=== PATIENT | female | born 1995 | race Two or more races ===

== ENCOUNTER 2019-09-14 23:03 | Inpatient (IN) | payer BC, MEDICAID ==
[~2019-09-14] VITALS: Ht 152.4 cm; Wt 88.9 kg
--- NOTE | 2019-09-14 23:20 | NUR ---
Poison control contacted, recommends drawing CBC, CMP, ASA and Tylenol levels, and obtain 12 lead EKG. Monitor for at least 6 hours from time of ingestion. Be alert for COPYHOLDER depression, ALOC and seizures. Monitor for widening QRS. For QRS > 120 give 1-2 mEq/kg of NaBicarb.
[2019-09-14 23:44] LABS: BASOPHILS # (AUTO) 0.1 X10'3 (0-0.2); BASOPHILS % (AUTO) 0.6 % (0-1); EOSINOPHILS # (AUTO) 0.2 X10'3 (0-0.9); EOSINOPHILS % (AUTO) 1.2 % (0-6); HEMATOCRIT 46.3 % (35.0-45.0); HEMOGLOBIN 15.8 g/dl (12.0-16.0); LYMPHOCYTES # (AUTO) 4.3 X10'3 (1.1-4.8); LYMPHOCYTES % (AUTO) 30.7 % (21-51); MEAN CORPUSCULAR HEMOGLOBIN 28.3 PG (27.0-31.0); MEAN CORPUSCULAR VOLUME 83.2 FL (78-98); MEAN PLATELET VOLUME 8.6 FL (7.4-10.4); MONOCYTES # (AUTO) 0.6 X10'3 (0-0.9); MONOCYTES % (AUTO) 4.4 % (2-12); NEUTROPHILS # (AUTO) 8.9 X10'3 (1.8-7.7); NEUTROPHILS % (AUTO) 63.1 % (42-75); PLATELET COUNT 308 X10'3 (140-440); RED BLOOD COUNT 5.56 X10'6 (4.20-5.60); RED CELL DISTRIBUTION WIDTH 13.8 % (11.5-14.5); WHITE BLOOD COUNT 14.1 X10'3 (4.5-11.0)
[2019-09-15 00:07] LABS: ALANINE AMINOTRANSFERASE 41 U/L (12-78); ALBUMIN 4.2 G/DL (3.4-5.0); ALBUMIN/GLOBULIN RATIO 0.9 (1.1-1.5); ALKALINE PHOSPHATASE 99 IU/L (46-116); ANION GAP 10 (8-16); ASPARTATE AMINO TRANSFERASE 15 U/L (10-37); BILIRUBIN,TOTAL 0.2 MG/DL (0.1-1.0); BLOOD UREA NITROGEN 12 MG/DL (7-18); BUN/CREATININE RATIO 12.9 (6.6-38.0); CALCIUM 9.5 MG/DL (8.5-10.1); CHLORIDE 103 MMOL/L (99-107); CREATININE 0.93 MG/DL (0.40-0.90); GLUCOSE 84 MG/DL (70-104); POTASSIUM 3.6 MMOL/L (3.5-5.1); SODIUM 139 MMOL/L (135-145); TOTAL CARBON DIOXIDE 26.2 MMOL/L (24-32); TOTAL PROTEIN 8.9 G/DL (6.4-8.2); eGFR 75 ML/MIN
[2019-09-15 00:15] LABS: ETHANOL < 0.010 GM/DL (0.0-0.010)
[2019-09-15 00:16] LABS: ACETAMINOPHEN < 2.0 UG/ML (10-30)
--- NOTE | 2019-09-15 00:31 | NUR ---
SRAVANTHI YOUSSEF BOYFRIEND CALLED FOR STATUS OF PT. PT DOES NOT WANT US TO UPDATE HIM
--- NOTE | 2019-09-15 00:32 | NUR ---
PT GIVES PERMISSION TO SPEAK WITH HER MOTHER IF SHE CALLS
[2019-09-15] MEDS ORDERED: normal saline 1000ML IV soln IV ONE (00:45)
--- NOTE | 2019-09-15 00:48 | NUR ---
DR. CASILLAS INFORMED THAT THE HR IS 136. HE ASKED IF THE FIRST LITER OF NS IS IN. I INFORMED THAT IT WAS, HE SAID HE WILL ORDER ANOTHER. I ASKED HIM TO ORDER THE FIRST LITER WELL PLEASE. I ASKED THE PATIENT HOW SHE FELT. HER ANSWER WAS "ONE" I DO NOT KNOW WHAT THAT MEANS. THE PT. JUST STARES AT ME.
[2019-09-15] MEDS ORDERED: normal saline 1000ML IV soln IVB ONE (01:25)
--- NOTE | 2019-09-15 01:40 | NUR ---
PT RIED TO URINATE WAS UNABLE. WILL DO A STRAIT CATH
--- NOTE | 2019-09-15 02:00 | NUR ---
DID NOT DO ROOM AND ENVIRONMET ASSESSMENT AND REMOVAL OF ITEMS. PT IS REQUIRING MEDICAL ATTENTION. WILL REMOVE WHEN PT IS MEDICALLY CLEARED
[2019-09-15 02:01] LABS: URINE HCG NEGATIVE (NEG)
[2019-09-15 02:08] LABS: CLARITY,URINE CLEAR (Clear); COLOR,URINE STRAW (Yellow); GLUCOSE, URINE NEGATIVE (Neg); KETONES,URINE NEGATIVE (Neg); LEUKOCYTE ESTERASE ,URINE NEGATIVE (Neg); NITRITES, URINE NEGATIVE (Neg); OCCULT BLOOD,URINE MODERATE (Neg); PH,URINE 5.5 (4.8-8.0); PROTEIN,URINE NEGATIVE (Neg); URINE AMPHETAMINE SCREEN NEGATIVE (Neg); URINE BARBITUATE SCREEN NEGATIVE (Neg); URINE BENZODIAZEPINES SCREEN NEGATIVE (Neg); URINE CANNABINOID SCREEN NEGATIVE (Neg); URINE COCAINE SCREEN NEGATIVE (Neg); URINE METHADONE SCREEN NEGATIVE (Neg); URINE OPIATE SCREEN NEGATIVE (Neg); URINE PHENCYCLIDINE SCREEN NEGATIVE (Neg); UROBILINOGEN,URINE 0.2 E.U/dL (0.2-1.0)
[2019-09-15 02:09] LABS: UA COLLECTION TYPE INDWELLING CATH
--- NOTE | 2019-09-15 02:13 | NUR ---
Stacie GAVE DEAN (MOM) NUMBER [phone] TO CALL AND ASK HER QUESTIONS
[2019-09-15 02:15] LABS: BACTERIA,URINE NONE SEEN /HPF (Neg); RBC,URINE 0-2 /HPF (0-2); SQUAMOUS EPITHELIAL CELL,UR FEW /LPF (FEW); WBC,URINE NONE SEEN /HPF (0-4)
--- NOTE | 2019-09-15 02:26 | NUR ---
PT SITTING UP IN BED, FOOT OUT OF RAIL. SHE SAID "I AM UPSET, I DON'T KNOW WHEN SAW'S BIRTHDAY IS, AND I DON'T WANT TO TALK ABOUT IT." MD AWARE OF PT CONFUSION AND HEARTRATE AND BP.
--- NOTE | 2019-09-15 05:00 | NUR ---
TRIED TO CALL DEAN MICHEL MOM AGAIN NO ANSWER.
--- NOTE | 2019-09-15 05:18 | NUR ---
PT TO XRAY AND CT
--- NOTE | 2019-09-15 05:19 | NUR ---
WAS AT BS TO SEE THE PATIENT, HE IS AWARE OF THE HR AND BP
[2019-09-15] MEDS ORDERED: NO HOME MEDS (05:46)
[2019-09-15] MEDS ORDERED: CefTRIAXone 2gm/D5W 50ml 50 ML IV ONE (05:55)
[2019-09-15] MEDS ORDERED: vancomycin/NS 1 GM ADD-VANTAGE 250 ML IV ONE (05:55)
--- NOTE | 2019-09-15 05:56 | NUR ---
PT HAS A VERY UNSTEADY GAIT AND BALANCE IS OFF. SUMMONED TO THE BS TO SEE THIS. TEMPERATURE NOW 100.8 HR 135 RR 41 AND BP 151/100
[2019-09-15] MEDS ORDERED: CefTRIAXone inj 2,000 MG in dextrose 5%-water 100 ML IV ONE (05:59)
[2019-09-15] MEDS ORDERED: acetaminophen 325mg tablet PO STA (06:11)
--- NOTE | 2019-09-15 06:22 | NUR ---
REPORT GIVEN TO Mp peters
--- NOTE | 2019-09-15 06:50 | NUR ---
CALLED LAB AND STATED ANOTHER 20 MIN UNTIL RAPID COVID TEST IS BACK
[2019-09-15] MEDS ORDERED: mag hydrox/Alum hydrox/simeth 30ml oral suspension PO PRN (07:50)
[2019-09-15] MEDS ORDERED: magnesium hydroxide 30ml (MOM) UD suspension PO PRN (07:50)
[2019-09-15] MEDS ORDERED: magnesium 4gm in 100ml NS 100 ML IV PRN (07:50)
[2019-09-15] MEDS ORDERED: magnesium 2GM in 50ml NS 50 ML IV PRN (07:50)
[2019-09-15] MEDS ORDERED: acetaminophen 325mg tablet PO PRN (07:50)
[2019-09-15] MEDS ORDERED: ipratropium/albuterol 3ml nebule NEB PRN (07:50)
[2019-09-15] MEDS ORDERED: potassium Cl 20 mEq SR tablet PO PRN ×2 (07:50)
[2019-09-15] MEDS ORDERED: potassium CL 10mEq/100ml bag 100 ML IV PRN ×2 (07:50)
[2019-09-15] MEDS: K and/or MAG REPLACEMENT MC SCH ×2 (08:00→21:30)
[2019-09-15 08:15] LABS: BASOPHILS % (AUTO) 0.3 % (0-1); EOSINOPHILS % (AUTO) 0 % (0-6); HEMATOCRIT 43.5 % (35.0-45.0); HEMOGLOBIN 14.6 g/dl (12.0-16.0); LYMPHOCYTES % (AUTO) 15.5 % (21-51); MEAN CORPUSCULAR HEMOGLOBIN 27.8 PG (27.0-31.0); MEAN CORPUSCULAR HGB CONC 33.5 g/dL (33.0-36.5); MEAN CORPUSCULAR VOLUME 82.9 FL (78-98); MEAN PLATELET VOLUME 8.7 FL (7.4-10.4); MONOCYTES # (AUTO) 0.3 X10'3 (0-0.9); MONOCYTES % (AUTO) 2.3 % (2-12); NEUTROPHILS # (AUTO) 10.8 X10'3 (1.8-7.7); NEUTROPHILS % (AUTO) 81.9 % (42-75); PLATELET COUNT 305 X10'3 (140-440); RED BLOOD COUNT 5.25 X10'6 (4.20-5.60); RED CELL DISTRIBUTION WIDTH 13.8 % (11.5-14.5); WHITE BLOOD COUNT 13.1 X10'3 (4.5-11.0)
[2019-09-15 08:30] VITALS: BP 165/111
[2019-09-15 08:31] LABS: ALANINE AMINOTRANSFERASE 35 U/L (12-78); ALBUMIN/GLOBULIN RATIO 0.9 (1.1-1.5); ALKALINE PHOSPHATASE 95 IU/L (46-116); ANION GAP 10 (8-16); ASPARTATE AMINO TRANSFERASE 15 U/L (10-37); BILIRUBIN,TOTAL 0.2 MG/DL (0.1-1.0); BLOOD UREA NITROGEN 9 MG/DL (7-18); CALCIUM 9.1 MG/DL (8.5-10.1); CHLORIDE 107 MMOL/L (99-107); GLUCOSE 105 MG/DL (70-104); SODIUM 142 MMOL/L (135-145); TOTAL CARBON DIOXIDE 24.9 MMOL/L (24-32); TOTAL PROTEIN 8.3 G/DL (6.4-8.2); eGFR 78 ML/MIN
[2019-09-15] MEDS: diatr meglu/diatrizoate 30ml oral sol.-(3 dose) bottle PO SCH ×3 (09:27→15:44)
[2019-09-15] MEDS ORDERED: fentaNYL/PF 50MCG/1 ML 2ML syringe ONE (09:46)
[2019-09-15] MEDS ORDERED: midazolam 2 mg/2 ml injection ONE ×2 (09:46→09:56)
[2019-09-15 11:08] LABS: GLUCOSE,CSF 70 MG/DL (40-75); TOTAL PROTEIN,CSF 36 MG/DL (15-45)
[2019-09-15 11:20] LABS: APPEARANCE,CSF HAZY; CSF RBC 1575 /CU MM (0); CSF SUPERNATANT COLOR PINK; CSF VOLUME 11 ML; CSF WBC CT 3 /CU MM (0-5); TUBE# COUNTED 1
[2019-09-15 11:21] LABS: APPEARANCE,CSF CLEAR; CSF RBC 30 /CU MM (0); CSF SUPERNATANT COLOR COLORLESS; CSF VOLUME 11 ML; CSF WBC CT 1 /CU MM (0-5); TUBE# COUNTED 4
[2019-09-15 11:50] VITALS: BP 144/97
[2019-09-15] MEDS: sodium bicarbonate (8.4%) inj. 50 MEQ in dextrose 5%-water 1,000 ML IV SCH ×2 (12:15→19:25)
[2019-09-15] MEDS: acyclovir inj 1,000 MG in normal saline 250ml IV soln 230 ML IV SCH ×2 (12:15→19:12)
[2019-09-15] MEDS: metoprolol tartrate 25mg tablet PO SCH ×2 (13:50→21:32)
[2019-09-15 13:52] VITALS: BP 138/78
[2019-09-15] MEDS ORDERED: iohexol 300mg/ml 100ml inj. ONE (15:40)
[2019-09-15] MEDS: VANCOmycin 1250MG/NS 250ml Bag 250 ML IV SCH ×2 (16:40→23:10)
[2019-09-15 18:00] VITALS: BP 137/85
--- NOTE | 2019-09-15 18:45 | NUR ---
Patient in room ORTHO 4012. I have received report from Kailyn TURCIOS and had the opportunity to ask questions and assume patient care.
[2019-09-15 22:00] VITALS: BP 121/62
[2019-09-16] MEDS: acyclovir inj 1,000 MG in normal saline 250ml IV soln 230 ML IV SCH ×2 (01:39→09:23)
[2019-09-16 06:00] VITALS: BP 106/58
--- NOTE | 2019-09-16 06:00 | NUR ---
Patient in room ORTHO 4012. I have received report from Mary TURCIOS and had the opportunity to ask questions and assume patient care.
--- NOTE | 2019-09-16 06:35 | NUR ---
Problems reprioritized. Patient report given, questions answered & plan of care reviewed with Arlene TURCIOS.
[2019-09-16 07:11] LABS: BASOPHILS % (AUTO) 0.1 % (0-1); EOSINOPHILS # (AUTO) 0.1 X10'3 (0-0.9); EOSINOPHILS % (AUTO) 1.1 % (0-6); HEMOGLOBIN 13.5 g/dl (12.0-16.0); LYMPHOCYTES # (AUTO) 3.7 X10'3 (1.1-4.8); LYMPHOCYTES % (AUTO) 28.2 % (21-51); MEAN CORPUSCULAR HEMOGLOBIN 27.7 PG (27.0-31.0); MEAN CORPUSCULAR HGB CONC 32.9 g/dL (33.0-36.5); MEAN CORPUSCULAR VOLUME 84.2 FL (78-98); MEAN PLATELET VOLUME 8.2 FL (7.4-10.4); MONOCYTES # (AUTO) 0.9 X10'3 (0-0.9); MONOCYTES % (AUTO) 6.6 % (2-12); NEUTROPHILS # (AUTO) 8.4 X10'3 (1.8-7.7); PLATELET COUNT 269 X10'3 (140-440); RED BLOOD COUNT 4.86 X10'6 (4.20-5.60); WHITE BLOOD COUNT 13.2 X10'3 (4.5-11.0)
[2019-09-16] MEDS: metoprolol tartrate 25mg tablet PO SCH ×2 (07:21→19:46)
[2019-09-16] MEDS: VANCOmycin 1250MG/NS 250ml Bag 250 ML IV SCH (07:21)
[2019-09-16 07:24] LABS: ALANINE AMINOTRANSFERASE 31 U/L (12-78); ALBUMIN 3.4 G/DL (3.4-5.0); ALBUMIN/GLOBULIN RATIO 1.1 (1.1-1.5); ALKALINE PHOSPHATASE 82 IU/L (46-116); ANION GAP 7 (8-16); ASPARTATE AMINO TRANSFERASE 13 U/L (10-37); BILIRUBIN,TOTAL 0.5 MG/DL (0.1-1.0); BLOOD UREA NITROGEN 10 MG/DL (7-18); BUN/CREATININE RATIO 9.5 (6.6-38.0); CHLORIDE 110 MMOL/L (99-107); CREATININE 1.05 MG/DL (0.40-0.90); GLUCOSE 89 MG/DL (70-104); POTASSIUM 3.9 MMOL/L (3.5-5.1); SODIUM 144 MMOL/L (135-145); TOTAL CARBON DIOXIDE 26.8 MMOL/L (24-32); TOTAL PROTEIN 6.6 G/DL (6.4-8.2); eGFR 65 ML/MIN
[2019-09-16] MEDS ORDERED: CefTRIAXone inj 2,000 MG in normal saline 100ml IV soln 100 ML IV SCH (08:00)
[2019-09-16] MEDS: K and/or MAG REPLACEMENT MC SCH ×2 (08:00→20:00)
[2019-09-16 11:00] VITALS: BP 126/61
--- NOTE | 2019-09-16 13:56 | NUR ---
PAGER ID: [phone] MESSAGE: [id number] Aline Menjivar Poison control says they will clear her case once she is officially medically cleared. Derrick Jacobs [phone]
[2019-09-16] MEDS ORDERED: VANCOMYCIN LEVEL IV ONE (14:30)
[2019-09-16 18:00] VITALS: BP 176/57
--- NOTE | 2019-09-16 18:17 | NUR ---
Problems reprioritized. Patient report given, questions answered & plan of care reviewed with Lorie TURCIOS.
--- NOTE | 2019-09-16 19:14 | NUR ---
Patient in room ORTHO 4012. I have received report from LAURA TURCIOS and had the opportunity to ask questions and assume patient care.
[2019-09-16] MEDS: acetaminophen 325mg tablet PO PRN (20:18)
[2019-09-16] MEDS: ondansetron/PF 4mg/2ml inj IV PRN (20:52)
[2019-09-16 22:00] VITALS: BP 120/77
--- NOTE | 2019-09-16 22:30 | NUR ---
[facility] wrote a 5150 on patient
--- NOTE | 2019-09-16 23:04 | NUR ---
Received report from Lorie TURCIOS
--- NOTE | 2019-09-17 00:05 | NUR ---
Roman from [facility] called about questions on the patient.
[2019-09-17 06:10] LABS: BASOPHILS % (AUTO) 0.2 % (0-1); EOSINOPHILS # (AUTO) 0.1 X10'3 (0-0.9); HEMATOCRIT 40.6 % (35.0-45.0); HEMOGLOBIN 13.4 g/dl (12.0-16.0); LYMPHOCYTES # (AUTO) 3.2 X10'3 (1.1-4.8); LYMPHOCYTES % (AUTO) 25.6 % (21-51); MEAN CORPUSCULAR HEMOGLOBIN 27.5 PG (27.0-31.0); MEAN CORPUSCULAR VOLUME 83.3 FL (78-98); MEAN PLATELET VOLUME 8.2 FL (7.4-10.4); MONOCYTES # (AUTO) 0.6 X10'3 (0-0.9); MONOCYTES % (AUTO) 5.2 % (2-12); NEUTROPHILS # (AUTO) 8.5 X10'3 (1.8-7.7); PLATELET COUNT 267 X10'3 (140-440); RED BLOOD COUNT 4.87 X10'6 (4.20-5.60); RED CELL DISTRIBUTION WIDTH 13.7 % (11.5-14.5); WHITE BLOOD COUNT 12.4 X10'3 (4.5-11.0)
--- NOTE | 2019-09-17 06:36 | NUR ---
Problems reprioritized. Patient report given, questions answered & plan of care reviewed with Karin TURCIOS.
--- NOTE | 2019-09-17 06:44 | NUR ---
Patient in room ORTHO 4012. I have received report from [facility] and had the opportunity to ask questions and assume patient care.
[2019-09-17 06:46] LABS: ALANINE AMINOTRANSFERASE 27 U/L (12-78); ALBUMIN 3.5 G/DL (3.4-5.0); ALBUMIN/GLOBULIN RATIO 0.9 (1.1-1.5); ALKALINE PHOSPHATASE 92 IU/L (46-116); ANION GAP 10 (8-16); ASPARTATE AMINO TRANSFERASE 11 U/L (10-37); BILIRUBIN,TOTAL 0.4 MG/DL (0.1-1.0); BLOOD UREA NITROGEN 8 MG/DL (7-18); CALCIUM 8.5 MG/DL (8.5-10.1); CHLORIDE 107 MMOL/L (99-107); GLUCOSE 87 MG/DL (70-104); MAGNESIUM 2.1 MG/DL (1.5-2.4); POTASSIUM 3.5 MMOL/L (3.5-5.1); SODIUM 143 MMOL/L (135-145); TOTAL CARBON DIOXIDE 26.5 MMOL/L (24-32); TOTAL PROTEIN 7.2 G/DL (6.4-8.2); eGFR 89 ML/MIN
[2019-09-17] MEDS: metoprolol tartrate 25mg tablet PO SCH ×2 (07:42→20:54)
[2019-09-17] MEDS: K and/or MAG REPLACEMENT MC SCH (08:00)
[2019-09-17] MEDS: ondansetron/PF 4mg/2ml inj IV PRN (08:57)
[2019-09-17] MEDS: acetaminophen 325mg tablet PO PRN ×2 (09:01→17:41)
[2019-09-17 18:00] VITALS: BP 112/73
--- NOTE | 2019-09-17 18:31 | NUR ---
Problems reprioritized. Patient report given, questions answered & plan of care reviewed with Elisa.
[2019-09-17 20:00] VITALS: BP 136/81
[2019-09-17 20:54] VITALS: BP_SYST 136
[2019-09-18 17:07] LABS: CSF WEST NILE VIRUS, IGM Negative (Negative)
[2019-09-19 11:16] LABS: CSF WEST NILE VIRUS, IGG Negative (Negative)
== END 2019-09-17 22:30 | DRG 917 ==
LOC: ER 23:04 → ED HOLD 09-15 07:50 → ORTHO 4S 09-15 08:45
PROVIDERS: ADMIT Family Medicine; ATTEND Family Medicine
PROC: 009U3ZZ Drainage of Spinal Canal, Percutaneous Approach (ICD-10-PCS; principal; 2019-09-15)
PROC: B01B1ZZ Fluoroscopy of Spinal Cord using Low Osmolar Contrast (ICD-10-PCS; 2019-09-15)
PROC: BW211ZZ Computerized Tomography (CT Scan) of Abdomen and Pelvis using Low Osmolar Contrast (ICD-10-PCS; 2019-09-15)
DX: T45.0X2A Poisoning by antiallergic and antiemetic drugs, intentional self-harm, initial encounter (principal); G92 Toxic encephalopathy; F32.9 Major depressive disorder, single episode, unspecified; D72.823 Leukemoid reaction; Z20.828 Contact with and (suspected) exposure to other viral communicable diseases; R00.0 Tachycardia, unspecified; Y92.89 Other specified places as the place of occurrence of the external cause
CPT/HCPCS: 36415; 62328; 70450; 71045; 74177; 77003; 80053; 80202; 80305; 80320; 80329; 81001; 81025; 82945; 83605; 83735; 84145; 84157; 84443; 85025; 86592; 86788; 86789; 87015; 87040; 87070; 87081; 87635; 89051; 93005; 93971; 94760; 99152; 99153; 99285; G0378; J0133; J0696; J2250; J2405; J3010; J3370; J7030; J7050; J7060; Q9963; Q9967

== ENCOUNTER 2019-09-17 19:05 | Inpatient (IN) | payer BC, MEDICAID ==
[~2019-09-17] VITALS: Ht 152.4 cm; Wt 86.0 kg
[~2019-09-17 19:05] MED LIST: NO HOME MEDS
[2019-09-17 22:30] VITALS: BP 128/83
--- NOTE | 2019-09-17 22:53 | NUR ---
Arrived on the floor at 22:30 Ambulatory, 2 RN skin done. Pt showered. Belongings inventoried. Pt cooperative with admit process. Oriented to unit. Patient is a 24 y/o female BIB EMS to ED with overdose and attempted suicide. Patient stated to EMS she "wanted to end it all" and per boyfriend, took 10, 25mg Benadryl. Per EMS patient was alert and oriented, responding appropriately to questions. Patient does have confirmed history of depression. Pt was admitted to a medical floor treated, medically cleared and transferred to the unit.
[2019-09-17] MEDS ORDERED: traZODone 50mg tablet PO PRN (23:00)
[2019-09-17] MEDS ORDERED: ondansetron 4mg rapidly disintigrating tab PO ONE (23:00)
[2019-09-17] MEDS ORDERED: acetaminophen 325mg tablet PO PRN ×2 (23:00)
[2019-09-17] MEDS ORDERED: magnesium hydroxide 30ml (MOM) UD suspension PO PRN (23:00)
[2019-09-17] MEDS ORDERED: mag hydrox/Alum hydrox/simeth 30ml oral suspension PO PRN (23:00)
[2019-09-17] MEDS ORDERED: LORazepam 1 MG tablet PO PRN (23:00)
[2019-09-17] MEDS ORDERED: loperamide 2mg capsule PO PRN (23:00)
[2019-09-17] MEDS ORDERED: ibuprofen tablet 400 MG TABLET PO PRN (23:05)
--- NOTE | 2019-09-18 00:18 | NUR ---
Nursing Progress Note: Legal hold:5150 Client on involuntary status for DTS Report received from nurse with use of SBAR . Why are they here: Patient was BIB EMS to ED with overdose and attempted suicide. Patient stated to EMS she "wanted to end it all" and per boyfriend, took 10, 25mg Benadryl. Per EMS patient was alert and oriented, responding appropriately to questions. Patient does have confirmed history of depression. Pt was admitted to a medical floor treated, medically cleared and transferred to the unit. Assessment What has happened this shift: Pt was cooperative with admit process. She said several times that she no longer is suicidal and would like to go home tomorrow but is open to the idea of staying longer. Encouraged to talk to MD about her depression that per pt she was looking into "getting Psycho Therapy for" Immediately after Admit finished pt went to sleep. S/I, H/I: denies A/VH: demoes Sleep:Asleep at this time ADL's: independant Group attendance: NA Were meds taken: PRN ibuprofen only medication taken Any med S/E no Mental Status Exam Appearance: well groomed Eye contact: Good Behavior:Cooperative anxious wants to be discharged in am Speech: clear Mood: anxious Affect: appropriate Thought process: linear Thought Content: home tomorrow Cognition: good Insight: poor Judgment: fair Interventions PRN's used: ibuprofen Therapeutic interventions: Therapeutic interventions: 1:1 assessment, medication education, administration and monitoring for effects, active listening, therapeutic conversation with positive feedback, monitored pts labs, maintained a safe and therapeutic environment, Q15 min safety checks. Justification of Continued Inpatient Treatment: Pt needs interruption of current crisis and medication stabilization to prevent reoccurring hospitalization.
[2019-09-18 07:30] VITALS: BP 125/81
[2019-09-18 07:56] LABS: CHOL/HDL RATIO 4.8 (0.00-4.99); CHOLESTEROL 164 MG/DL (0-200); HDL CHOLESTEROL 34 MG/DL (35-60); LDL CHOLESTEROL 112 MG/DL (50-100); TRIGLYCERIDES 110 MG/DL (20-135)
[2019-09-18 08:32] LABS: HEMOGLOBIN A1C 5.7 % (4.5-6.2)
[2019-09-18] MEDS ORDERED: ibuprofen tablet 400 MG TABLET PO PRN (13:35)
--- NOTE | 2019-09-18 14:25 | NUR ---
Dr. Hudson came to see this patient. Patient states that she has nausea for which Dr. Hudson states he will order some Zofran. She also states that she, "has the worst headache", so Dr. Hudson is also ordering a head CT to rule out a subarachnoid hemorrhage.
[2019-09-18] MEDS ORDERED: ondansetron 4mg rapidly disintigrating tab PO PRN (14:45)
[2019-09-18 15:49] LABS: BASOPHILS # (AUTO) 0.1 X10'3 (0-0.2); BASOPHILS % (AUTO) 0.5 % (0-1); EOSINOPHILS # (AUTO) 0.1 X10'3 (0-0.9); EOSINOPHILS % (AUTO) 0.8 % (0-6); HEMOGLOBIN 13.4 g/dl (12.0-16.0); LYMPHOCYTES # (AUTO) 3.6 X10'3 (1.1-4.8); LYMPHOCYTES % (AUTO) 27.5 % (21-51); MEAN CORPUSCULAR HEMOGLOBIN 27.9 PG (27.0-31.0); MEAN CORPUSCULAR HGB CONC 33.6 g/dL (33.0-36.5); MONOCYTES # (AUTO) 0.7 X10'3 (0-0.9); MONOCYTES % (AUTO) 5.2 % (2-12); NEUTROPHILS # (AUTO) 8.6 X10'3 (1.8-7.7); PLATELET COUNT 280 X10'3 (140-440); RED BLOOD COUNT 4.82 X10'6 (4.20-5.60); RED CELL DISTRIBUTION WIDTH 13.8 % (11.5-14.5)
--- NOTE | 2019-09-18 16:01 | NUR ---
Nursing Progress Note: Legal hold:5150 Client on involuntary status for DTS Report received from nurse with use of SBAR . Why are they here: Patient was BIB EMS to ED with overdose and attempted suicide. Patient stated to EMS she "wanted to end it all" and per boyfriend, took 10, 25mg Benadryl. Per EMS patient was alert and oriented, responding appropriately to questions. Patient does have confirmed history of depression. Pt was admitted to a medical floor treated, medically cleared and transferred to the unit. Assessment What has happened this shift: Pt. asleep at start of shift. Pt. awake for breakfast. At breakfast, greeted pt, pt., became tearful. RN asked pt. if she wanted to talk in private, pt. states, I dont want to talk about it. Pt. ate only part of her breakfast and went back to her room to sleep. 1:1 done at bedside, pt. denies SI/HI, A/V hallucinations. Pt. reports she is here because she took 10 Benadryl because she wanted to number herself. Pt. does not want to talk about details, pt. states, I have a headache. Pt. reports headache rated 10/10 and given Tylenol with no effect. RN received order for Ibuprofen 800mg TID PRN. Pt. given some relief. Pt. refused lunch. Hospitalist ordered CT scan and Zofran for pt. CT was negative S/I, H/I: denies A/VH: denies Sleep: Pt. napped majority of shift. ADL's: independent Group attendance: NA Were meds taken: Yes Any med S/E: None Mental Status Exam Appearance: well groomed Eye contact: Good Behavior: Cooperative but guarded. Isolates to room. Speech: clear Mood: anxious. Depressed. Affect: Congruent with mood Thought process: linear Thought Content: Discharge Cognition: good Insight: poor Judgment: fair Interventions PRN's used: Tylenol 650 mgx1 and Ibuprofen 800mg x1 Therapeutic interventions: Therapeutic interventions: 1:1 assessment, medication education, administration and monitoring for effects, active listening, therapeutic conversation with positive feedback, monitored pts labs, maintained a safe and therapeutic environment, Q15 min safety checks. Justification of Continued Inpatient Treatment: Pt needs interruption of current crisis and medication stabilization to prevent reoccurring hospitalization.
[2019-09-18 20:00] VITALS: BP 123/77
[2019-09-18] MEDS ORDERED: ESCITALOPRAM OXALATE 5 MG TABLET PO ONE (20:20)
--- NOTE | 2019-09-19 02:06 | NUR ---
Nursing Progress Note: Legal hold:5150 Client on involuntary status for DTS Report received from nurse with use of SBAR . Why are they here: Patient was BIB EMS to ED with overdose and attempted suicide. Patient stated to EMS she "wanted to end it all" and per boyfriend, took 10, 25mg Benadryl. Per EMS patient was alert and oriented, responding appropriately to questions. Patient does have confirmed history of depression. Pt was admitted to a medical floor treated, medically cleared and transferred to the unit. Assessment What has happened this shift: Pt in room awake at change of shift. Pt said headache and nausea have completely resolved. Isolated to room all shift. 1:1 done at bedside, Pt said she is not depressed denied SI. Pt is focused on discharge. Per pt MD said she would be discharged late Wednesday afternoon. Pt started on Lexapro this PM education given pt said she had discussed this medication with MD so she did not have any questions. S/I, H/I: denies A/VH: denies Sleep: asleep at this time ADL's: independent Group attendance: NA Were meds taken: Yes Any med S/E: None Mental Status Exam Appearance: well groomed Eye contact: Good Behavior: Cooperative but guarded. Isolates to room. Speech: clear Mood: anxious. Depressed. Affect: Congruent with mood Thought process: linear Thought Content: Discharge Cognition: good Insight: poor Judgment: fair Interventions PRN's used: none Therapeutic interventions: 1:1 assessment, medication education, administration and monitoring for effects, active listening, therapeutic conversation with positive feedback, monitored pts labs, maintained a safe and therapeutic environment, Q15 min safety checks. Justification of Continued Inpatient Treatment: Pt needs interruption of current crisis and medication stabilization to prevent reoccurring hospitalization.
[2019-09-19] MEDS: pantoprazole 40mg Tablet.DR PO SCH (07:34)
[2019-09-19] MEDS: ESCITALOPRAM OXALATE 5 MG TABLET PO SCH (07:35)
[2019-09-19 08:00] VITALS: BP 113/78
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
--- NOTE | 2019-09-19 11:57 | NUR ---
Faxed referral to [facility] in [place] for therapy and medication management as [facility] reported they can take [employer]'s insurance. LULA Luna
--- NOTE | 2019-09-19 14:41 | NUR ---
Nursing Progress Note: Legal hold:5150 Client on involuntary status for DTS Report received from nurse with use of SBAR . Why are they here: Patient was BIB EMS to ED with overdose and attempted suicide. Patient stated to EMS she "wanted to end it all" and per boyfriend, took 10, 25mg Benadryl. Per EMS patient was alert and oriented, responding appropriately to questions. Patient does have confirmed history of depression. Pt was admitted to a medical floor treated, medically cleared and transferred to the unit. Assessment What has happened this shift: Pt resting in bed peacefully at change of shift. She is pleasant and cooperative with care and takes her medications as ordered without incident. She does report some nausea and was given zofran which is ordered with good effect. Patient isolated in her room the majority of the shift and stayed in bed. She refused breakfast and lunch. She currently is denying SI, HI, A/VH. She states she does not have much to talk about and that she is "just tired". She does not want to talk much during the assessment. S/I, H/I: denies A/VH: denies Sleep: Pt. napped majority of shift. ADL's: independent Group attendance: NA Were meds taken: Yes Any med S/E: None Mental Status Exam Appearance: hair somewhat disheveled Eye contact: Good Behavior: Cooperative but guarded. Isolates to room. Speech: clear, soft Mood: Depressed. Affect: Congruent with mood Thought process: linear Thought Content: Discharge, "just tired" Cognition: good Insight: poor Judgment: fair Interventions PRN's used:none Therapeutic interventions: Therapeutic interventions: 1:1 assessment, medication education, administration and monitoring for effects, active listening, therapeutic conversation with positive feedback, monitored pts labs, maintained a safe and therapeutic environment, Q15 min safety checks. Justification of Continued Inpatient Treatment: Pt needs interruption of current crisis and medication stabilization to prevent reoccurring hospitalization.
[2019-09-19] MEDS ORDERED: pantoprazole 40mg Tablet.DR PO SCH (17:00)
[2019-09-19 20:37] VITALS: BP 119/75
--- NOTE | 2019-09-20 03:02 | NUR ---
Nursing Progress Note: Legal hold:5150 Client on involuntary status for DTS Report received from nurse Regalado with use of SBAR . Why are they here: Patient was BIB EMS to ED with overdose and attempted suicide. Patient stated to EMS she "wanted to end it all" and per boyfriend, took 10, 25mg Benadryl. Per EMS patient was alert and oriented, responding appropriately to questions. Patient does have confirmed history of depression. Pt was admitted to a medical floor treated, medically cleared and transferred to the unit. Assessment Pt isolated to room majority of shift. Pt is pleasant and cooperative and volunteered information during assessment. Pt denies all signs and symptoms, and states she has a much better understanding why she drank and took the Benadryl and that she is hopeful therapy will the support she needs. Pt is looking forward to discharge. She had questions regarding legal holds and the general discharge process of our unit. Pt had no scheduled meds this evening and has slept well. S/I, H/I: denies A/VH: denies Sleep: Sleeps through the night. See sleep assessment. ADL's: independent Group attendance: NA Were meds taken: Yes Any med S/E: None Mental Status Exam Appearance: well groomed Eye contact: Good Behavior: Cooperative but guarded. Isolates to room. Speech: clear Mood: "I feel good" Affect: Bright Thought process: linear Thought Content: wanting to discharge, plans for counseling after discharge Cognition: A&Ox4 Insight: Fair Judgment: fair Interventions PRN's used: none Therapeutic interventions: 1:1 assessment, medication education, administration and monitoring for effects, active listening, therapeutic conversation with positive feedback, monitored pts labs, maintained a safe and therapeutic environment, Q15 min safety checks. Justification of Continued Inpatient Treatment: Pt needs interruption of current crisis and medication stabilization to prevent reoccurring hospitalization.
[2019-09-20 08:00] VITALS: BP 122/77
[2019-09-20] MEDS: ESCITALOPRAM OXALATE 5 MG TABLET PO SCH (08:03)
[2019-09-20] MEDS: pantoprazole 40mg Tablet.DR PO SCH (08:05)
[2019-09-20 09:02] VITALS: BP 122/77
[2019-09-20] MEDS ORDERED: ESCI5TAB PO (12:52)
[2019-09-20] MEDS ORDERED: PANT40TA4 PO (12:52)
[2019-09-20] MEDS ORDERED: TRAZ-251 PO (12:52)
--- NOTE | 2019-09-20 14:03 | NUR ---
Nursing Discharge Note Pt discharged from [facility] at 1402. Pt escorted to lobby by [facility] and picked up by kraig in motor vehicle to be taken home. Pt denies SI and was in pleasant mood with a bright affect. She was in no acute emotional or physical distress and has been improving since admission. Pt's belongings inventoried and returned to her by Pat Neves. Discharge medications were called into [facility] pharmacy per her request. Pt understands discharge instructions and did not want nicotine replacement.
== END 2019-09-20 14:02 | disposition home or self-care (01) | DRG 885 ==
LOC: ADULT MH 22:02
PROVIDERS: ADMIT Psychiatry & Neurology Psychiatry; ATTEND Psychiatry & Neurology Psychiatry
DX: F33.2 Major depressive disorder, recurrent severe without psychotic features (principal); T45.0X2A Poisoning by antiallergic and antiemetic drugs, intentional self-harm, initial encounter; Y92.89 Other specified places as the place of occurrence of the external cause; Z79.899 Other long term (current) drug therapy
CPT/HCPCS: 36415; 70450; 80061; 83036; 85025